=== PATIENT | female | born 1970 | race American Indian/Alaskan Native ===

== ENCOUNTER 2023-12-02 16:53 | Observation (INO) | payer OTHER, SELFPAY ==
[2023-12-02] VITALS (28 sets, daily range): BP systolic 84–140; BP diastolic 48–73; PULSE 102–140; RESP 18–32; TEMP 36.5–36.7; O2SAT 88–98; BMI 28.3; BMI 28.2
--- NOTE | 2023-12-02 17:05 | DI.RAD.S_ITS ---
PROCEDURE: XR CHEST 1V INDICATIONS: chest pain TECHNIQUE: One view of the chest was acquired. COMPARISON: None. FINDINGS: Surgical changes and devices: None. Lungs and pleura: Lungs are clear. No pleural effusions or pneumothorax. Mediastinum: Mediastinal contours appear normal. Heart size is normal. Bones and chest wall: No suspicious bony lesions. Overlying soft tissues appear unremarkable. IMPRESSION: No acute cardiopulmonary abnormality is seen. Dictated by: Madi Berman M.D. on 12/02/2023 at 17:26 Approved by: Madi Berman M.D. on 12/02/2023 at 17:26
[2023-12-02] MEDS: SODIUM CHLORIDE 0.9% 1,000 ML 1000 ML IV ×3 (17:14→22:22)
[2023-12-02 17:17] LABS: Add Manual Diff / Slide Review NO; Basophils Absolute Auto 0 /uL (0-100); Basophils Percent Auto 0.5 % (0-2); Eosinophils Absolute Auto 0 /uL (0-450); Eosinophils Percent Auto 0.1 % (2-4); Hematocrit 43.1 % (36-46); Lymphocytes Absolute Auto 1600 /uL (1100-4500); Lymphocytes Percent Auto 19.2 % (25-40); Mean Corpuscular HGB Conc 34.7 % (30-36); Mean Corpuscular Hemoglobin 32.7 PG (26-34); Mean Corpuscular Volume 94.3 fL (80-100); Monocytes Absolute Auto 300 /uL (0-900); Monocytes Percent Auto 3.6 % (3-14); Neutrophils Absolute Auto 6300 /uL (1500-7000); Neutrophils Percent Auto 76.6 % (50-75); Platelet Count 135 X10^3/uL (150-400); Red Blood Cell Count 4.57 X10^6/uL (4.0-5.2); Red Cell Distribution Width 13.9 % (11.6-14.8); White Blood Cell Count 8.2 X10^3/uL (4.5-11.0)
--- NOTE | 2023-12-02 17:20 | ED.ARRPALP ---
HPI - Arrhythmia/Palpitations <Norah Busby DO - Last Filed: 12/03/23 07:17> General Chief Complaint: Arrhythmia/Palpitations Stated Complaint: heart racing Time Seen by Provider: 12/02/23 17:05 Source: patient Mode of arrival: Ambulatory History of Present Illness HPI narrative: Patient 53-year-old healthy female presents today with heart palpitations. She reports that this morning she noticed she had some palpitations it really never slow down all day. She denies any chest pain or dizziness no shortness of breath no fever or chills. No abdominal pain no nausea or vomiting. She has never had this happen before. She has not traveled anywhere. She appears in sinus tachycardia. She is also developed a slight headache throughout the day no numbness tingling or weakness Related Data Home Medications Medication Instructions Recorded Confirmed No Known Home Medications 12/03/23 12/03/23 Allergies Allergy/AdvReac Type Severity Reaction Status Date / Time No Known Drug Allergies Allergy Verified 12/02/23 17:04 Review of Systems <Rosario Vásquez MD - Last Filed: 12/03/23 02:36> Review of Systems Narrative: see HPI Patient History <Norah Busby DO - Last Filed: 12/03/23 07:17> Social History household members: children lives independently: Yes Smoking Status: Never smoker alcohol intake: current Smoking Status: Never smoker alcohol intake frequency: 0-2 drinks per day Substance Use Type: does not use Exam <Norah Busby DO - Last Filed: 12/03/23 07:17> Initial Vital Signs Initial Vital Signs: Vital Signs Pulse Rate 138 H 12/02/23 17:01 Blood Pressure 140/69 12/02/23 17:01 Pulse Oximetry 94 12/02/23 17:01 GENERAL: Alert 53-year-old female no acute distress and in no acute distress. HEENT: Head atraumatic,EOMI, pupils reactive, face symmetric, moist mucous membranes CARDIOVASCULAR: Regular rate tachycardic no murmurs RESPIRATORY: Breath sounds equal bilaterally, no wheezes rales or rhonchi. ABDOMEN: Soft, nontender. Normoactive bowel sounds all 4 quadrants. No guarding or rebound. EXTREMITIES: Normal range of motion, no clubbing or edema. Neurovascularly intact NEUROLOGICAL: Alert and oriented x4.Normal gait and speech. SKIN: Warm, dry, no laceration, no petechiae, no rashes or lesions. <Rosario Vásquez MD - Last Filed: 12/03/23 02:36> Initial Vital Signs Initial Vital Signs: Vital Signs Pulse Rate 138 H 12/02/23 17:01 Blood Pressure 140/69 12/02/23 17:01 Pulse Oximetry 94 12/02/23 17:01 Course <Norah Busby DO - Last Filed: 12/03/23 07:17> Orders Ordered: ED Orders 12/02/23 23:40 Urine Drug Screen, Rapid Stat Acetaminophen (Acetaminophen 325 Mg Tablet) 650 mg PO Q6H PRN PRN Reason: Fever/Mild Pain (1-3) Chlordiazepoxide HCl (Chlordiazepoxide 25 Mg Capsule) 50 mg PO Q6HR [facility] Last Admin: 12/03/23 06:03 Dose: 50 mg Documented By: Admin: 12/02/23 23:45 Dose: 50 mg Documented By: MS Enoxaparin Sodium (Enoxaparin 40 Mg/0.4 Ml Syringe) 40 mg SUBCUT DAILY [facility] Folic Acid (Folic Acid 1 Mg Tablet) 1 mg PO DAILY [facility] Dextrose/Sodium Chloride (Dextrose 5%-0.45% Ns) 1,000 mls @ 100 mls/hr IV CONT [facility] Last Admin: 12/02/23 23:45 Dose: 100 mls/hr Documented By: MS Ceftriaxone Sodium 1,000 mg/ (Sodium Chloride) 100 mls @ 200 mls/hr IV Q24H [facility] Last Admin: 12/03/23 04:06 Dose: 200 mls/hr Documented By: MS Albumin Human (Albuminar) 50 gm in 200 mls @ 60 mls/hr IV NOW ONE Stop: 12/03/23 08:55 Last Admin: 12/03/23 06:54 Dose: 60 mls/hr Documented By: MS Lorazepam (Lorazepam 2 Mg/Ml Inj) 0 mg IV CIWAPRN PRN; Protocol PRN Reason: Alcohol Withdrawal Multivitamins (Multivitamin 1 Tablet) 1 tab PO DAILY [facility] Naloxone HCl (Naloxone 0.4 Mg/Ml Vial) 0.2 mg IV Q2MIN PRN PRN Reason: Opiate Reversal Ondansetron HCl (Ondansetron 4 Mg/2 Ml Inj) 4 mg IV Q6HR PRN PRN Reason: Nausea And Vomiting Potassium Chloride (Potassium Chloride 20 Meq Tab) 40 meq PO Q6H [facility] Stop: 12/03/23 09:46 Last Admin: 12/03/23 04:06 Dose: 40 meq Documented By: Thiamine HCl (Thiamine 100 Mg Tablet) 100 mg PO DAILY [facility] Stop: 12/06/23 09:01 Discontinued Medications Clonidine HCl (Clonidine 0.1 Mg Tablet) 0.2 mg PO NOW ONE Stop: 12/02/23 20:34 Last Admin: 12/02/23 20:39 Dose: 0.2 mg Documented By: ANABELA Folic Acid (Folic Acid 1 Mg Tablet) 1 mg PO NOW ONE Stop: 12/02/23 19:02 Last Admin: 12/02/23 19:19 Dose: 1 mg Documented By: GREGORY Sodium Chloride (Normal Saline 0.9%) 1,000 mls @ 1,000 mls/hr IV BOLUS ONE Stop: 12/02/23 18:04 Last Infusion: 12/02/23 18:24 Dose: Infused Documented By: Admin: 12/02/23 17:14 Dose: 1,000 mls/hr Documented By: SPF Sodium Chloride (Normal Saline 0.9%) 1,000 mls @ 1,000 mls/hr IV BOLUS ONE Stop: 12/02/23 19:17 Last Infusion: 12/02/23 19:20 Dose: Infused Documented By: Admin: 12/02/23 18:45 Dose: 1,000 mls/hr Documented By: SPF Thiamine HCl 200 mg/ Sodium (Chloride) 102 mls @ 408 mls/hr IV NOW ONE Stop: 12/02/23 19:02 Last Infusion: 12/02/23 19:45 Dose: Infused Documented By: Admin: 12/02/23 19:20 Dose: 408 mls/hr Documented By: SPF Magnesium Sulfate (Magnesium Sulfate) 2 gm in 50 mls @ 25 mls/hr IV NOW ONE Stop: 12/03/23 00:14 Last Admin: 12/02/23 23:45 Dose: 25 mls/hr Documented By: Co-signed By: JUAN Sodium Chloride (Normal Saline 0.9%) 1,000 mls @ 1,000 mls/hr IV BOLUS ONE Stop: 12/02/23 23:21 Last Admin: 12/02/23 22:22 Dose: 1,000 mls/hr Documented By: GREGORY Sodium Chloride (Normal Saline 0.9%) 1,000 mls @ 1,000 mls/hr IV BOLUS ONE Stop: 12/03/23 02:08 Last Admin: 12/03/23 01:28 Dose: 1,000 mls/hr Documented By: FAISAL Magnesium Sulfate (Magnesium Sulfate) 2 gm in 50 mls @ 25 mls/hr IV NOW ONE Stop: 12/03/23 04:44 Last Infusion: 12/03/23 03:45 Dose: 0 mls/hr Documented By: Co-signed By: SMS Admin: 12/03/23 03:11 Dose: 25 mls/hr Documented By: FAISAL Co-signed By: Lactated Ringer's (Lactated Ringers) 1,000 mls @ 1,000 mls/hr IV BOLUS ONE Stop: 12/03/23 03:44 Last Admin: 12/03/23 02:57 Dose: 1,000 mls/hr Documented By: FAISAL Ketorolac Tromethamine (Ketorolac 30 Mg/Ml Vial) 15 mg IV NOW ONE Stop: 12/02/23 17:33 Last Admin: 12/02/23 17:43 Dose: 15 mg Documented By: ANABELA Midodrine (Midodrine Hcl 5 Mg Tablet) 10 mg PO 0600,1200,1800 STA Stop: 12/03/23 05:42 Last Admin: 12/03/23 06:03 Dose: 10 mg Documented By: FAISAL Phenobarbital (Phenobarbital 65 Mg/Ml Vial) 260 mg IV NOW ONE Stop: 12/02/23 19:38 Last Admin: 12/02/23 19:47 Dose: 260 mg Documented By: VAN Potassium Chloride (Potassium Chloride 20 Meq Tab) 40 meq PO NOW ONE Stop: 12/02/23 22:41 Last Admin: 12/02/23 23:51 Dose: 40 meq Documented By: Vital Signs Vital signs: Vital Signs - 8 hr 12/02/23 18:35 12/02/23 19:00 12/02/23 19:00 Pulse Rate 129 H 126 H Respiratory Rate 25 H Blood Pressure 132/68 Pulse Oximetry 98 97 Oxygen Delivery Method Room Air 12/02/23 19:30 12/02/23 19:30 12/02/23 20:00 Pulse Rate 124 H Respiratory Rate 30 H Blood Pressure 113/67 140/70 Pulse Oximetry 95 Oxygen Delivery Method Room Air 12/02/23 20:00 12/02/23 20:30 12/02/23 20:30 Pulse Rate 120 H 120 H Respiratory Rate 26 H 30 H Blood Pressure 131/73 Pulse Oximetry 96 94 Oxygen Delivery Method 12/02/23 20:39 12/02/23 21:00 12/02/23 21:30 Pulse Rate 120 H 117 H 111 H Respiratory Rate 23 31 H Blood Pressure 131/73 Pulse Oximetry 95 92 Oxygen Delivery Method Room Air Room Air 12/02/23 21:30 12/02/23 21:40 12/02/23 21:41 Pulse Rate Respiratory Rate Blood Pressure 96/58 L Pulse Oximetry 88 L 95 Oxygen Delivery Method Room Air Room Air <Rosario Vásquez MD - Last Filed: 12/03/23 02:36> Orders Ordered: ED Orders 12/02/23 23:40 Urine Drug Screen, Rapid Stat Acetaminophen (Acetaminophen 325 Mg Tablet) 650 mg PO Q6H PRN PRN Reason: Fever/Mild Pain (1-3) Chlordiazepoxide HCl (Chlordiazepoxide 25 Mg Capsule) 50 mg PO Q6HR [facility] Last Admin: 12/03/23 06:03 Dose: 50 mg Documented By: Admin: 12/02/23 23:45 Dose: 50 mg Documented By: Enoxaparin Sodium (Enoxaparin 40 Mg/0.4 Ml Syringe) 40 mg SUBCUT DAILY [facility] Folic Acid (Folic Acid 1 Mg Tablet) 1 mg PO DAILY [facility] Dextrose/Sodium Chloride (Dextrose 5%-0.45% Ns) 1,000 mls @ 100 mls/hr IV CONT [facility] Last Admin: 12/02/23 23:45 Dose: 100 mls/hr Documented By: MS Ceftriaxone Sodium 1,000 mg/ (Sodium Chloride) 100 mls @ 200 mls/hr IV Q24H [facility] Last Admin: 12/03/23 04:06 Dose: 200 mls/hr Documented By: Albumin Human (Albuminar) 50 gm in 200 mls @ 60 mls/hr IV NOW ONE Stop: 12/03/23 08:55 Last Admin: 12/03/23 06:54 Dose: 60 mls/hr Documented By: Lorazepam (Lorazepam 2 Mg/Ml Inj) 0 mg IV CIWAPRN PRN; Protocol PRN Reason: Alcohol Withdrawal Multivitamins (Multivitamin 1 Tablet) 1 tab PO DAILY [facility] Naloxone HCl (Naloxone 0.4 Mg/Ml Vial) 0.2 mg IV Q2MIN PRN PRN Reason: Opiate Reversal Ondansetron HCl (Ondansetron 4 Mg/2 Ml Inj) 4 mg IV Q6HR PRN PRN Reason: Nausea And Vomiting Potassium Chloride (Potassium Chloride 20 Meq Tab) 40 meq PO Q6H SHAD Stop: 12/03/23 09:46 Last Admin: 12/03/23 04:06 Dose: 40 meq Documented By: Thiamine HCl (Thiamine 100 Mg Tablet) 100 mg PO DAILY [facility] Stop: 12/06/23 09:01 Discontinued Medications Clonidine HCl (Clonidine 0.1 Mg Tablet) 0.2 mg PO NOW ONE Stop: 12/02/23 20:34 Last Admin: 12/02/23 20:39 Dose: 0.2 mg Documented By: ANABELA Folic Acid (Folic Acid 1 Mg Tablet) 1 mg PO NOW ONE Stop: 12/02/23 19:02 Last Admin: 12/02/23 19:19 Dose: 1 mg Documented By: GREGORY Sodium Chloride (Normal Saline 0.9%) 1,000 mls @ 1,000 mls/hr IV BOLUS ONE Stop: 12/02/23 18:04 Last Infusion: 12/02/23 18:24 Dose: Infused Documented By: Admin: 12/02/23 17:14 Dose: 1,000 mls/hr Documented By: GREGORY Sodium Chloride (Normal Saline 0.9%) 1,000 mls @ 1,000 mls/hr IV BOLUS ONE Stop: 12/02/23 19:17 Last Infusion: 12/02/23 19:20 Dose: Infused Documented By: Admin: 12/02/23 18:45 Dose: 1,000 mls/hr Documented By: GREGORY Thiamine HCl 200 mg/ Sodium (Chloride) 102 mls @ 408 mls/hr IV NOW ONE Stop: 12/02/23 19:02 Last Infusion: 12/02/23 19:45 Dose: Infused Documented By: Admin: 12/02/23 19:20 Dose: 408 mls/hr Documented By: GREGORY Magnesium Sulfate (Magnesium Sulfate) 2 gm in 50 mls @ 25 mls/hr IV NOW ONE Stop: 12/03/23 00:14 Last Admin: 12/02/23 23:45 Dose: 25 mls/hr Documented By: Co-signed By: JUAN Sodium Chloride (Normal Saline 0.9%) 1,000 mls @ 1,000 mls/hr IV BOLUS ONE Stop: 12/02/23 23:21 Last Admin: 12/02/23 22:22 Dose: 1,000 mls/hr Documented By: GREGORY Sodium Chloride (Normal Saline 0.9%) 1,000 mls @ 1,000 mls/hr IV BOLUS ONE Stop: 12/03/23 02:08 Last Admin: 12/03/23 01:28 Dose: 1,000 mls/hr Documented By: FAISAL Magnesium Sulfate (Magnesium Sulfate) 2 gm in 50 mls @ 25 mls/hr IV NOW ONE Stop: 12/03/23 04:44 Last Infusion: 12/03/23 03:45 Dose: 0 mls/hr Documented By: Co-signed By: JUAN Admin: 12/03/23 03:11 Dose: 25 mls/hr Documented By: FAISAL Co-signed By: Lactated Ringer's (Lactated Ringers) 1,000 mls @ 1,000 mls/hr IV BOLUS ONE Stop: 12/03/23 03:44 Last Admin: 12/03/23 02:57 Dose: 1,000 mls/hr Documented By: FAISAL Ketorolac Tromethamine (Ketorolac 30 Mg/Ml Vial) 15 mg IV NOW ONE Stop: 12/02/23 17:33 Last Admin: 12/02/23 17:43 Dose: 15 mg Documented By: ANABELA Midodrine (Midodrine Hcl 5 Mg Tablet) 10 mg PO 0600,1200,1800 STA Stop: 12/03/23 05:42 Last Admin: 12/03/23 06:03 Dose: 10 mg Documented By: FAISAL Phenobarbital (Phenobarbital 65 Mg/Ml Vial) 260 mg IV NOW ONE Stop: 12/02/23 19:38 Last Admin: 12/02/23 19:47 Dose: 260 mg Documented By: VAN Potassium Chloride (Potassium Chloride 20 Meq Tab) 40 meq PO NOW ONE Stop: 12/02/23 22:41 Last Admin: 12/02/23 23:51 Dose: 40 meq Documented By: MS Vital Signs Vital signs: Vital Signs - 8 hr 12/02/23 18:35 12/02/23 19:00 12/02/23 19:00 Pulse Rate 129 H 126 H Respiratory Rate 25 H Blood Pressure 132/68 Pulse Oximetry 98 97 Oxygen Delivery Method Room Air 12/02/23 19:30 12/02/23 19:30 12/02/23 20:00 Pulse Rate 124 H Respiratory Rate 30 H Blood Pressure 113/67 140/70 Pulse Oximetry 95 Oxygen Delivery Method Room Air 12/02/23 20:00 12/02/23 20:30 12/02/23 20:30 Pulse Rate 120 H 120 H Respiratory Rate 26 H 30 H Blood Pressure 131/73 Pulse Oximetry 96 94 Oxygen Delivery Method 12/02/23 20:39 12/02/23 21:00 12/02/23 21:30 Pulse Rate 120 H 117 H 111 H Respiratory Rate 23 31 H Blood Pressure 131/73 Pulse Oximetry 95 92 Oxygen Delivery Method Room Air Room Air 12/02/23 21:30 12/02/23 21:40 12/02/23 21:41 Pulse Rate Respiratory Rate Blood Pressure 96/58 L Pulse Oximetry 88 L 95 Oxygen Delivery Method Room Air Room Air MDM - Arrhythmia/Palpitations <Norah Busby, DO - Last Filed: 12/03/23 07:17> Lab Data 12/03/23 03:01 12/03/23 03:01 Labs: Lab Results 12/02/23 12/02/23 12/02/23 Range/Units 17:05 19:05 19:55 WBC 8.2 (4.5-11.0) X10^3/uL RBC 4.57 (4.0-5.2) X10^6/uL Hgb 15.0 (12.0-16.0) g/dL Hct 43.1 (36-46) % MCV 94.3 (80-100) fL MCH 32.7 (26-34) PG MCHC 34.7 (30-36) % RDW 13.9 (11.6-14.8) % Plt Count 135 L (150-400) X10^3/uL Neut % (Auto) 76.6 H (50-75) % Lymph % (Auto) 19.2 L (25-40) % Patrick % (Auto) 3.6 (3-14) % Eos % (Auto) 0.1 L (2-4) % Baso % (Auto) 0.5 (0-2) % Neut # (Auto) 6300 (9847-5988) /uL Lymph # (Auto) 1600 (3127-7063) /uL Patrick # (Auto) 300 (0-900) /uL Eos # (Auto) 0 (0-450) /uL Baso # (Auto) 0 (0-100) /uL PT 13.0 H (9.4-12.5) SECONDS INR 1.1 (0.9-1.3) APTT 36 (25.1-36.5) SECONDS D-Dimer 460 (<500) ng/ml VBG pH 7.45 H (7.33-7.43) VBG pCO2 27.9 L (45-50) mmHg VBG pO2 64 H (35-45) mmHg VBG HCO3 19 L (24-28) mmol/L VBG Total CO2 20 L (24-29) mmol/L VBG O2 Saturation 93 H (70-75) % VBG Base Excess -5.0 L (0-4) mmol/L FiO2 21 Sodium 142 (137-145) mmol/L Potassium 3.2 L (3.4-5.1) mmol/L Chloride 105 (98-107) mmol/L Carbon Dioxide 11 L (22-32) mmol/L BUN 13 (7-17) mg/dL Creatinine 0.97 (0.52-1.04) mg/dL Estimated GFR > 60 (>60) mL/min BUN/Creatinine Ratio 13.4 (6-22) Glucose 103 H (70-100) mg/dL Lactate 10.9 H* 6.6 H* (0.7-2.1) mmol/L Calcium 9.3 (8.4-10.2) mg/dL Magnesium 1.8 (1.6-2.3) mg/dL Total Bilirubin 1.8 H (0.2-1.3) mg/dL AST 57 H (14-36) IU/L ALT 25 (<35) IU/L Alkaline Phosphatase 149 H (38-126) U/L Total Creatine Kinase 72 (30-135) U/L Troponin I 0.032 (0.01-0.034) ng/mL Total Protein 8.9 H (6.3-8.2) g/dL Albumin 4.3 (3.5-5.0) g/dL Globulin 4.6 H (1.7-4.1) g/dL Albumin/Globulin Ratio 0.9 L (1.0-2.8) Lipase 197 (23-300) U/L TSH 0.392 L (0.47-4.68) uIU/mL Ethyl Alcohol 17 H ( - 10) mg/dL 12/02/23 Range/Units 21:20 WBC (4.5-11.0) X10^3/uL RBC (4.0-5.2) X10^6/uL Hgb (12.0-16.0) g/dL Hct (36-46) % MCV (80-100) fL MCH (26-34) PG MCHC (30-36) % RDW (11.6-14.8) % Plt Count (150-400) X10^3/uL Neut % (Auto) (50-75) % Lymph % (Auto) (25-40) % Patrick % (Auto) (3-14) % Eos % (Auto) (2-4) % Baso % (Auto) (0-2) % Neut # (Auto) (2107-3282) /uL Lymph # (Auto) (0310-9770) /uL Patrick # (Auto) (0-900) /uL Eos # (Auto) (0-450) /uL Baso # (Auto) (0-100) /uL PT (9.4-12.5) SECONDS INR (0.9-1.3) APTT (25.1-36.5) SECONDS D-Dimer (<500) ng/ml VBG pH (7.33-7.43) VBG pCO2 (45-50) mmHg VBG pO2 (35-45) mmHg VBG HCO3 (24-28) mmol/L VBG Total CO2 (24-29) mmol/L VBG O2 Saturation (70-75) % VBG Base Excess (0-4) mmol/L FiO2 Sodium (137-145) mmol/L Potassium (3.4-5.1) mmol/L Chloride (98-107) mmol/L Carbon Dioxide (22-32) mmol/L BUN (7-17) mg/dL Creatinine (0.52-1.04) mg/dL Estimated GFR (>60) mL/min BUN/Creatinine Ratio (6-22) Glucose (70-100) mg/dL Lactate 2.8 H (0.7-2.1) mmol/L Calcium (8.4-10.2) mg/dL Magnesium (1.6-2.3) mg/dL Total Bilirubin (0.2-1.3) mg/dL AST (14-36) IU/L ALT (<35) IU/L Alkaline Phosphatase (38-126) U/L Total Creatine Kinase (30-135) U/L Troponin I (0.01-0.034) ng/mL Total Protein (6.3-8.2) g/dL Albumin (3.5-5.0) g/dL Globulin (1.7-4.1) g/dL Albumin/Globulin Ratio (1.0-2.8) Lipase (23-300) U/L TSH (0.47-4.68) uIU/mL Ethyl Alcohol ( - 10) mg/dL Imaging Data Chest x-ray: Radiologist's Impresson: PROCEDURE: XR CHEST 1V INDICATIONS: chest pain TECHNIQUE: One view of the chest was acquired. COMPARISON: None. FINDINGS: Surgical changes and devices: None. Lungs and pleura: Lungs are clear. No pleural effusions or pneumothorax. Mediastinum: Mediastinal contours appear normal. Heart size is normal. Bones and chest wall: No suspicious bony lesions. Overlying soft tissues appear unremarkable. IMPRESSION: No acute cardiopulmonary abnormality is seen. Dictated by: Madi Berman M.D. on 12/02/2023 at 17:26 ECG Data Interpretation: Sinus tachycardia rate 130 AK interval 166 QRS [address] changes or T-wave inversions MDM Narrative Medical decision making narrative: Patient healthy 53-year-old female presents today with heart palpitations. She is noted to be tachycardic here in the ED appears sinus rhythm heart rate initially in the 140s but decreased in the 120s. She also is having mild headache Blood work reviewed: WBC 8.2, he hemoglobin 15.0, hematocrit 43.1, platelets 135, sodium 142, potassium 3.2, chloride 105, carbon dioxide 11, BUN 13, creatinine 0.9, glucose 103, bilirubin 1.8 AST 57 ALT 25 alk-phos 149 Imaging pending Signed out to Dr. Fahad Vásquez -assumed care of patient at 6:00 p.m.. Patient reassessed, she was resting comfortably in bed, still tachycardic at a rate of 120 beats per minute. Laboratory work is reviewed, laboratory work called with lactic acid results. Patient's lactic acid is 10 and her bicarb is 11. Patient's physical presentation is incongruent with her laboratory results. She states she still feels occasionally short of breath but does feel like her heart rate has i mproved. CTA ordered due to patient's persistant tachycardia, borderline troponin, and lab abnormalities Alcohol level is elevated despite patient's stating that her last drink was yesterday and she only drinks ?1? per day. In addition liver enzymes are elevated and on CT angio of the chest the liver was visualized and has nodular contour consistent with hepatic cirrhosis. I suspect that patient has been untruthful about her alcohol intake and her symptoms may in fact be related to alcohol withdrawal. Thiamine and folic acid added, phenobarbital ordered. Heart rate has decreased, patient states that she would like to pursue stopping alcohol. We will admit patient for further treatment of her condition. <Rosario Vásquez MD - Last Filed: 12/03/23 02:36> Lab Data Labs: Lab Results 12/02/23 12/02/23 12/02/23 Range/Units 17:05 19:05 19:55 WBC 8.2 (4.5-11.0) X10^3/uL RBC 4.57 (4.0-5.2) X10^6/uL Hgb 15.0 (12.0-16.0) g/dL Hct 43.1 (36-46) % MCV 94.3 (80-100) fL MCH 32.7 (26-34) PG MCHC 34.7 (30-36) % RDW 13.9 (11.6-14.8) % Plt Count 135 L (150-400) X10^3/uL Neut % (Auto) 76.6 H (50-75) % Lymph % (Auto) 19.2 L (25-40) % Patrick % (Auto) 3.6 (3-14) % Eos % (Auto) 0.1 L (2-4) % Baso % (Auto) 0.5 (0-2) % Neut # (Auto) 6300 (2207-2820) /uL Lymph # (Auto) 1600 (7836-8449) /uL Patrick # (Auto) 300 (0-900) /uL Eos # (Auto) 0 (0-450) /uL Baso # (Auto) 0 (0-100) /uL PT 13.0 H (9.4-12.5) SECONDS INR 1.1 (0.9-1.3) APTT 36 (25.1-36.5) SECONDS D-Dimer 460 (<500) ng/ml VBG pH 7.45 H (7.33-7.43) VBG pCO2 27.9 L (45-50) mmHg VBG pO2 64 H (35-45) mmHg VBG HCO3 19 L (24-28) mmol/L VBG Total CO2 20 L (24-29) mmol/L VBG O2 Saturation 93 H (70-75) % VBG Base Excess -5.0 L (0-4) mmol/L FiO2 21 Sodium 142 (137-145) mmol/L Potassium 3.2 L (3.4-5.1) mmol/L Chloride 105 (98-107) mmol/L Carbon Dioxide 11 L (22-32) mmol/L BUN 13 (7-17) mg/dL Creatinine 0.97 (0.52-1.04) mg/dL Estimated GFR > 60 (>60) mL/min BUN/Creatinine Ratio 13.4 (6-22) Glucose 103 H (70-100) mg/dL Lactate 10.9 H* 6.6 H* (0.7-2.1) mmol/L Calcium 9.3 (8.4-10.2) mg/dL Magnesium 1.8 (1.6-2.3) mg/dL Total Bilirubin 1.8 H (0.2-1.3) mg/dL AST 57 H (14-36) IU/L ALT 25 (<35) IU/L Alkaline Phosphatase 149 H (38-126) U/L Total Creatine Kinase 72 (30-135) U/L Troponin I 0.032 (0.01-0.034) ng/mL Total Protein 8.9 H (6.3-8.2) g/dL Albumin 4.3 (3.5-5.0) g/dL Globulin 4.6 H (1.7-4.1) g/dL Albumin/Globulin Ratio 0.9 L (1.0-2.8) Lipase 197 (23-300) U/L TSH 0.392 L (0.47-4.68) uIU/mL Ethyl Alcohol 17 H ( - 10) mg/dL 12/02/23 Range/Units 21:20 WBC (4.5-11.0) X10^3/uL RBC (4.0-5.2) X10^6/uL Hgb (12.0-16.0) g/dL Hct (36-46) % MCV (80-100) fL MCH (26-34) PG MCHC (30-36) % RDW (11.6-14.8) % Plt Count (150-400) X10^3/uL Neut % (Auto) (50-75) % Lymph % (Auto) (25-40) % Patrick % (Auto) (3-14) % Eos % (Auto) (2-4) % Baso % (Auto) (0-2) % Neut # (Auto) (4003-7985) /uL Lymph # (Auto) (9740-3672) /uL Patrick # (Auto) (0-900) /uL Eos # (Auto) (0-450) /uL Baso # (Auto) (0-100) /uL PT (9.4-12.5) SECONDS INR (0.9-1.3) APTT (25.1-36.5) SECONDS D-Dimer (<500) ng/ml VBG pH (7.33-7.43) VBG pCO2 (45-50) mmHg VBG pO2 (35-45) mmHg VBG HCO3 (24-28) mmol/L VBG Total CO2 (24-29) mmol/L VBG O2 Saturation (70-75) % VBG Base Excess (0-4) mmol/L FiO2 Sodium (137-145) mmol/L Potassium (3.4-5.1) mmol/L Chloride (98-107) mmol/L Carbon Dioxide (22-32) mmol/L BUN (7-17) mg/dL Creatinine (0.52-1.04) mg/dL Estimated GFR (>60) mL/min BUN/Creatinine Ratio (6-22) Glucose (70-100) mg/dL Lactate 2.8 H (0.7-2.1) mmol/L Calcium (8.4-10.2) mg/dL Magnesium (1.6-2.3) mg/dL Total Bilirubin (0.2-1.3) mg/dL AST (14-36) IU/L ALT (<35) IU/L Alkaline Phosphatase (38-126) U/L Total Creatine Kinase (30-135) U/L Troponin I (0.01-0.034) ng/mL Total Protein (6.3-8.2) g/dL Albumin (3.5-5.0) g/dL Globulin (1.7-4.1) g/dL Albumin/Globulin Ratio (1.0-2.8) Lipase (23-300) U/L TSH (0.47-4.68) uIU/mL Ethyl Alcohol ( - 10) mg/dL MDM Narrative Medical decision making narrative: Patient healthy 53-year-old female presents today with heart palpitations. She is noted to be tachycardic here in the ED appears sinus rhythm heart rate initially in the 140s but decreased in the 120s. She also is having mild headache Blood work reviewed: WBC 8.2, he hemoglobin 15.0, hematocrit 43.1, platelets 135, sodium 142, potassium 3.2, chloride 105, carbon dioxide 11, BUN 13, creatinine 0.9, glucose 103, bilirubin 1.8 AST 57 ALT 25 alk-phos 149 Dr. Vásquez -assumed care of patient at 6:00 p.m.. Patient reassessed, she was resting comfortably in bed, still tachycardic at a rate of 120 beats per minute. Laboratory work is reviewed, laboratory work called with lactic acid results. Patient's lactic acid is 10 and her bicarb is 11. Patient's physical presentation is incongruent with her laboratory results. She states she still feels occasionally short of breath but does feel like her heart rate has i mproved. CTA ordered due to patient's persistant tachycardia, borderline troponin, and lab abnormalities Alcohol level is elevated despite patient's stating that her last drink was yesterday and she only drinks ?1? per day. In addition liver enzymes are elevated and on CT angio of the chest the liver was visualized and has nodular contour consistent with hepatic cirrhosis. I suspect that patient has been untruthful about her alcohol intake and her symptoms may in fact be related to alcohol withdrawal. Thiamine and folic acid added, phenobarbital ordered. Heart rate has decreased, patient states that she would like to pursue stopping alcohol. We will admit patient for further treatment of her condition. Discharge Plan Departure Patient Disposition: Admitted as Observation Clinical Impression: Sinus tachycardia Hepatic cirrhosis Qualifiers: Hepatic cirrhosis type: alcoholic cirrhosis Ascites presence: without ascites Qualified Code(s): K70.30 - Alcoholic cirrhosis of liver without ascites Admit Date/Time: 12/02/23 21:46 Admit Provider: Fernanda Walker
--- NOTE | 2023-12-02 17:29 | PC.NURSE ---
Pt reports feeling heart palpitations at rest starting this morning, with some SOB. Pt stayed at home and has not felt better. On the drive here developed headache. She denies history of similar, denies headache, N/V, cough, fevers.
[2023-12-02 17:33] LABS: Alanine Aminotransferase 25 IU/L (<35); Albumin 4.3 g/dL (3.5-5.0); Albumin Globulin Ratio 0.9 (1.0-2.8); Alkaline Phosphatase 149 U/L (38-126); Aspartate Aminotransferase 57 IU/L (14-36); BUN Creatinine Ratio 13.4 (6-22); Bilirubin Total 1.8 mg/dL (0.2-1.3); Blood Urea Nitrogen 13 mg/dL (7-17); Calcium 9.3 mg/dL (8.4-10.2); Carbon Dioxide 11 mmol/L (22-32); Chloride 105 mmol/L (98-107); Creatine Kinase 72 U/L (30-135); Estimated Glomerular Filt Rate > 60 mL/min (>60); Globulin 4.6 g/dL (1.7-4.1); Glucose 103 mg/dL (70-100); HEMOLYSIS < 15 (0-50); Lipase 197 U/L (23-300); Potassium 3.2 mmol/L (3.4-5.1); Sodium 142 mmol/L (137-145); Total Protein 8.9 g/dL (6.3-8.2)
[2023-12-02 17:34] LABS: INR 1.1 (0.9-1.3)
[2023-12-02 17:35] LABS: D Dimer 460 ng/ml (<500)
[2023-12-02 17:36] LABS: PTT Partial Thromboplastin Tim 36 SECONDS (25.1-36.5)
[2023-12-02 17:43] LABS: Troponin I 0.032 ng/mL (0.01-0.034)
[2023-12-02] MEDS: KETOROLAC 30 MG/ML VIAL 15 MG IV (17:43)
[2023-12-02 17:58] LABS: Magnesium 1.8 mg/dL (1.6-2.3)
[2023-12-02 18:13] LABS: Lactate (Lactic Acid) 10.9 mmol/L (0.7-2.1)
--- NOTE | 2023-12-02 18:18 | DI.CT.S_ITS ---
PROCEDURE: CT ANGIO CHEST PE PROTOCOL INDICATIONS: dyspnea, tachycardia, lactic acidosis TECHNIQUE: After the administration of intravenous contrast, 2 mm thick sections acquired from the pulmonary apices to the posterior costophrenic angles. 3-dimensional maximum intensity projection (MIP) coronal and sagittal reformats were then acquired through the thorax. For radiation dose reduction, the following was used: automated exposure control, adjustment of mA and/or kV according to patient size. COMPARISON: None. FINDINGS: Image quality: Diagnostic. Pulmonary arteries: Main pulmonary artery is dilated measuring 3.5 cm. No intraluminal filling defects to suggest central pulmonary embolism. Lower Neck: No enlarged lymph nodes. Thyroid: No thyroid nodules which require sonographic follow up, per consensus guidelines. Axillae: No enlarged lymph nodes. Chest Wall: Unremarkable. Bones: Unremarkable. Lungs and Pleura: No pneumothorax or pleural effusions. No consolidation or suspicious nodules. Heart: Heart size is normal. No pericardial effusion. Thoracic Vessels: No aortic aneurysm. Mediastinum and Prema: No enlarged lymph nodes. Esophagus: No wall thickening. No hiatal hernia. Upper Abdomen: Nodular contour to the liver, consistent with cirrhosis. IMPRESSION: No pulmonary embolus. No acute cardiopulmonary process. Dilated main pulmonary artery, suggestive of pulmonary hypertension. Hepatic cirrhosis. Dictated by: Madi Berman M.D. on 12/02/2023 at 19:11 Approved by: Madi Berman M.D. on 12/02/2023 at 19:18
[2023-12-02 18:25] LABS: Ethanol (ETOH) 17 mg/dL
[2023-12-02 18:28] LABS: Thyroid Stimulating Hormone 0.392 uIU/mL (0.47-4.68)
[2023-12-02 19:16] LABS: Reflexed Lactate in 2 Hours Y
[2023-12-02] MEDS: FOLIC ACID 1 MG TABLET PO (19:19)
[2023-12-02] MEDS: THIAMINE 200 MG in SODIUM CHLORIDE 0.9% 100 ML 408 MG IV (19:20)
[2023-12-02 19:35] LABS: Lactate 2HR (Lactic Acid Rflx) 6.6 mmol/L (0.7-2.1)
[2023-12-02] MEDS: PHENobarbital 65 MG/ML VIAL 260 MG IV (19:47)
[2023-12-02 20:22] LABS: HCO3 VBG 19 mmol/L (24-28); PCO2 VBG 27.9 mmHg (45-50); PO2 VBG 64 mmHg (35-45); Total CO2 VBG 20 mmol/L (24-29); pH VBG 7.45 (7.33-7.43)
[2023-12-02 20:23] LABS: Fractionated Inspired Oxygen 21; Oxygen Saturation VBG 93 % (70-75)
[2023-12-02] MEDS: cloNIDine 0.1 MG TABLET 0.2 MG PO (20:39)
--- NOTE | 2023-12-02 22:20 | PC.NURSE ---
Dr. Vásquez notified of pt's hypotension. New verbal orders for fluid bolus, see MAR.
[2023-12-02 22:32] LABS: Lactate (Lactic Acid) 2.8 mmol/L (0.7-2.1)
[2023-12-02] MEDS: chlordiazePOXIDE 25 MG CAPSULE 50 MG PO (23:45)
[2023-12-02] MEDS: MAGNESIUM SULFATE 2 GM/50 ML PIGGYBACK IV (23:45)
[2023-12-02] MEDS: DEXTROSE 5%-0.45% NS 1,000 ML 100 ML IV (23:45)
--- NOTE | 2023-12-02 23:47 | PM.HP.1 ---
History of Present Illness History of Present Illness Date Patient Seen: 12/02/23 Time Patient Seen: 23:47 Date of Onset of Symptoms: 12/02/23 Chief complaint: heart racing Narrative: States she was at her baseline health this morning when she felt like her heart was racing. This persisted and was not like any other times is has felt fast with red bull which she has daily in the morning and thus she presented to ED for evaluation. Denies chest pain, endorses a little SOB like she was winded. Denies GI or symptoms. Typically drinks 8 oz of alcohol a day, last drink 4/3 in the evening. Has stopped drinking EtOH previously without withdrawal symptoms or seizure, longest duration about 6 months. Feels that she tries but does not stay as well hydrated as she would like at home, drinks about 3 cups a water a day while at work. Tries to eat a diet balanced with proteins. Denies fevers, chills, night sweats. No sick contacts. No recent virus. Reports a pneumonia around 07/2023, was able to manage at home. States she does not take any medications, does not have any medical conditions, is not aware of any medical records on file for her at other facilities. ED evaluated, CTA negative for PE or acute process. Found the patient to have sinus tachycardia in acute alcohol withdrawal. Given severity in ED, bolus phenobarbital 260mg then Clonidine 0.2mg administered. BP trended down after Clonidine and 1 L NS from 140/69 to 96/50. HR on presentation 150's, improved to 120 with fluids, phenobarbital, down to 110 after Clonidine. Plan for admission to ICU. Administered in ED Folic Acid (Folic Acid 1 Mg Tablet) 1 mg PO NOW ONE Stop: 12/02/23 19:02 Last Admin: 12/02/23 19:19 Dose: 1 mg Documented By: SPF Sodium Chloride (Normal Saline 0.9%) 1,000 mls @ 1,000 mls/hr IV BOLUS ONE Stop: 12/02/23 18:04 Last Infusion: 12/02/23 18:24 Dose: Infused Documented By: Admin: 12/02/23 17:14 Dose: 1,000 mls/hr Documented By: SPF Sodium Chloride (Normal Saline 0.9%) 1,000 mls @ 1,000 mls/hr IV BOLUS ONE Stop: 12/02/23 19:17 Last Infusion: 12/02/23 19:20 Dose: Infused Documented By: Admin: 12/02/23 18:45 Dose: 1,000 mls/hr Documented By: GREGORY Thiamine HCl 200 mg/ Sodium (Chloride) 102 mls @ 408 mls/hr IV NOW ONE Stop: 12/02/23 19:02 Last Infusion: 12/02/23 19:45 Dose: Infused Documented By: Admin: 12/02/23 19:20 Dose: 408 mls/hr Documented By: GREGORY Ketorolac Tromethamine (Ketorolac 30 Mg/Ml Vial) 15 mg IV NOW ONE Stop: 12/02/23 17:33 Last Admin: 12/02/23 17:43 Dose: 15 mg Documented By: ANABELA Phenobarbital (Phenobarbital 65 Mg/Ml Vial) 260 mg IV NOW ONE Stop: 12/02/23 19:38 Last Admin: 12/02/23 19:47 Dose: 260 mg Documented By: [facility] Social History household members: children lives independently: Yes Smoking Status: Never smoker alcohol intake: current Meds Home Medications and Allergies Allergies Allergy/AdvReac Type Severity Reaction Status Date / Time No Known Drug Allergies Allergy Verified 12/02/23 17:04 Review of Systems Review of Systems ROS: Yes All systems reviewed with the patient and are negative except as otherwise documented Exam Vital Signs (past 8 hours): - 12/02/23 17:01 12/02/23 17:01 12/02/23 17:04 Temperature 98.0 F Pulse Rate 138 H 140 H Respiratory Rate 18 Blood Pressure 140/69 140/69 Pulse Oximetry 94 95 Oxygen Delivery Method Room Air Oxygen Flow Rate 12/02/23 17:30 12/02/23 17:30 12/02/23 18:00 Temperature Pulse Rate 128 H 122 H Respiratory Rate 32 H 30 H Blood Pressure 135/60 Pulse Oximetry 97 96 Oxygen Delivery Method Room Air Oxygen Flow Rate 12/02/23 18:00 12/02/23 18:35 12/02/23 19:00 Temperature Pulse Rate 129 H Respiratory Rate Blood Pressure 130/58 L 132/68 Pulse Oximetry 98 Oxygen Delivery Method Oxygen Flow Rate 12/02/23 19:00 12/02/23 19:30 12/02/23 19:30 Temperature Pulse Rate 126 H 124 H Respiratory Rate 25 H 30 H Blood Pressure 113/67 Pulse Oximetry 97 95 Oxygen Delivery Method Room Air Room Air Oxygen Flow Rate 12/02/23 20:00 12/02/23 20:00 12/02/23 20:30 Temperature Pulse Rate 120 H Respiratory Rate 26 H Blood Pressure 140/70 131/73 Pulse Oximetry 96 Oxygen Delivery Method Oxygen Flow Rate 12/02/23 20:30 12/02/23 20:39 12/02/23 21:00 Temperature Pulse Rate 120 H 120 H 117 H Respiratory Rate 30 H 23 Blood Pressure 131/73 Pulse Oximetry 94 95 Oxygen Delivery Method Room Air Oxygen Flow Rate 12/02/23 21:30 12/02/23 21:30 12/02/23 21:40 Temperature Pulse Rate 111 H Respiratory Rate 31 H Blood Pressure 96/58 L Pulse Oximetry 92 88 L Oxygen Delivery Method Room Air Room Air Oxygen Flow Rate 12/02/23 21:41 12/02/23 21:51 12/02/23 21:51 Temperature Pulse Rate Respiratory Rate Blood Pressure Pulse Oximetry 95 88 L 93 Oxygen Delivery Method Room Air Room Air Nasal Cannula Oxygen Flow Rate 1 12/02/23 22:00 12/02/23 22:05 12/02/23 22:05 Temperature Pulse Rate 102 H 104 H Respiratory Rate 30 H 27 H Blood Pressure 91/55 L Pulse Oximetry 94 Oxygen Delivery Method Nasal Cannula Oxygen Flow Rate 1 12/02/23 22:11 12/02/23 22:11 12/02/23 22:23 Temperature Pulse Rate 102 H Respiratory Rate 27 H Blood Pressure 91/55 L 86/54 L Pulse Oximetry 95 Oxygen Delivery Method Oxygen Flow Rate 12/02/23 22:23 12/02/23 22:29 12/02/23 22:29 Temperature Pulse Rate 104 H 105 H Respiratory Rate 25 H 27 H Blood Pressure 99/50 L Pulse Oximetry 95 96 Oxygen Delivery Method Nasal Cannula Oxygen Flow Rate 1 12/02/23 22:30 12/02/23 22:30 12/02/23 22:35 Temperature Pulse Rate 105 H Respiratory Rate 27 H Blood Pressure 97/52 L 88/52 L Pulse Oximetry 96 Oxygen Delivery Method Oxygen Flow Rate 12/02/23 22:35 12/02/23 22:40 12/02/23 22:40 Temperature Pulse Rate 104 H 104 H Respiratory Rate 26 H 27 H Blood Pressure 91/52 L Pulse Oximetry 96 96 Oxygen Delivery Method Nasal Cannula Oxygen Flow Rate 1 12/02/23 22:45 12/02/23 22:45 12/02/23 22:50 Temperature Pulse Rate 106 H Respiratory Rate 22 Blood Pressure 84/48 L 93/52 L Pulse Oximetry 96 Oxygen Delivery Method Oxygen Flow Rate 12/02/23 22:50 12/02/23 23:15 12/02/23 23:16 Temperature Pulse Rate 108 H 106 H Respiratory Rate 30 H 20 Blood Pressure 112/56 L Pulse Oximetry 96 Oxygen Delivery Method Nasal Cannula Oxygen Flow Rate 1 12/02/23 23:16 Temperature 97.7 F Pulse Rate 105 H Respiratory Rate 26 H Blood Pressure Pulse Oximetry 97 Oxygen Delivery Method Oxygen Flow Rate 2 Oxygen Delivery Method Nasal Cannula Oxygen Flow Rate 2 Narrative Exam Narrative: Exam using audio visual with stethoscope. Const General: cooperative and comfortable Eyes General: appearance normal, both eyes and all related structures Resp Effort & Inspection: normal respiratory effort and able to speak in complete sentences Auscultation: clear to auscultation bilaterally Cardio Rate: tachycardic Rhythm: regular rhythm Heart Sounds: no murmurs GI Palpation: soft and No tender Auscultation: normal bowel sounds Skin General: no rashes or lesions noted Neuro General: patient alert and patient oriented x3 Extrem General: normal to inspection Psych Appearance: grossly normal Mental Status: mental status grossly normal Objective ECG Impression: Unable to view images, per documentation ECG Data Interpretation: Sinus tachycardia rate 130 SC interval 166 QRS [address] changes or T-wave inversions Imaging CT scan - chest: My impression: NAP Radiologist's impression: CTA chest COMPARISON: None. FINDINGS: Image quality: Diagnostic. Pulmonary arteries: Main pulmonary artery is dilated measuring 3.5 cm. No intraluminal filling defects to suggest central pulmonary embolism. Lower Neck: No enlarged lymph nodes. Thyroid: No thyroid nodules which require sonographic follow up, per consensus guidelines. Axillae: No enlarged lymph nodes. Chest Wall: Unremarkable. Bones: Unremarkable. Lungs and Pleura: No pneumothorax or pleural effusions. No consolidation or suspicious nodules. Heart: Heart size is normal. No pericardial effusion. Thoracic Vessels: No aortic aneurysm. Mediastinum and Prema: No enlarged lymph nodes. Esophagus: No wall thickening. No hiatal hernia. Upper Abdomen: Nodular contour to the liver, consistent with cirrhosis. IMPRESSION: No pulmonary embolus. No acute cardiopulmonary process. Dilated main pulmonary artery, suggestive of pulmonary hypertension. Hepatic cirrhosis. Dictated by: Madi Berman M.D. on 12/02/2023 at 19:11 Approved by: Madi Berman M.D. on 12/02/2023 at 19:18 Labs 12/02/23 17:05 12/02/23 17:05 Labs: Laboratory Results - last 24 hr 12/02/23 12/02/23 12/02/23 09:20 17:05 19:05 WBC 8.2 RBC 4.57 Hgb 15.0 Hct 43.1 MCV 94.3 MCH 32.7 MCHC 34.7 RDW 13.9 Plt Count 135 L Neut % (Auto) 76.6 H Lymph % (Auto) 19.2 L [place] % (Auto) 3.6 Eos % (Auto) 0.1 L Baso % (Auto) 0.5 Neut # (Auto) 6300 Lymph # (Auto) 1600 [place] # (Auto) 300 Eos # (Auto) 0 Baso # (Auto) 0 PT 13.0 H INR 1.1 APTT 36 D-Dimer 460 VBG pH VBG pCO2 VBG pO2 VBG HCO3 VBG Total CO2 VBG O2 Saturation VBG Base Excess FiO2 Sodium 142 Potassium 3.2 L Chloride 105 Carbon Dioxide 11 L BUN 13 Creatinine 0.97 Estimated GFR > 60 BUN/Creatinine Ratio 13.4 Glucose 103 H Lactate 2.8 H 10.9 H* 6.6 H* Calcium 9.3 Magnesium 1.8 Total Bilirubin 1.8 H AST 57 H ALT 25 Alkaline Phosphatase 149 H Total Creatine Kinase 72 Troponin I 0.032 Total Protein 8.9 H Albumin 4.3 Globulin 4.6 H Albumin/Globulin Ratio 0.9 L Lipase 197 TSH 0.392 L Ethyl Alcohol 17 H 12/02/23 19:55 WBC RBC Hgb Hct MCV MCH MCHC RDW Plt Count Neut % (Auto) Lymph % (Auto) [place] % (Auto) Eos % (Auto) Baso % (Auto) Neut # (Auto) Lymph # (Auto) [place] # (Auto) Eos # (Auto) Baso # (Auto) PT INR APTT D-Dimer VBG pH 7.45 H VBG pCO2 27.9 L VBG pO2 64 H VBG HCO3 19 L VBG Total CO2 20 L VBG O2 Saturation 93 H VBG Base Excess -5.0 L FiO2 21 Sodium Potassium Chloride Carbon Dioxide BUN Creatinine Estimated GFR BUN/Creatinine Ratio Glucose Lactate Calcium Magnesium Total Bilirubin AST ALT Alkaline Phosphatase Total Creatine Kinase Troponin I Total Protein Albumin Globulin Albumin/Globulin Ratio Lipase TSH Ethyl Alcohol Assessment & Plan Assessment and plan (1) Alcohol withdrawal syndrome: Qualifiers: Complication of substance-induced condition: uncomplicated Qualified Code(s): F10.930 - Alcohol use, unspecified with withdrawal, uncomplicated Status: Acute Plan: Admit to ICU Sinus tachycardia, tachypnea - d-dimer negative, CTA without PE or acute process, no ACS, VBG 7.45 wth O2 64 on RA in the setting of type B lactic acidosis Desire treatment for alcohol withdrawal, SW consulted Upon evaluation BP 112/56, HR 106 - improved and BP trending up after Clonidine in ED, will hold further CIWA with Ativan prn, scheduled Librium (2) Sinus tachycardia: Status: Acute Plan: 2/2 above, improving, continue treatment as above Troponin negative 0.32, CK 72, EKG sinus tachycardia without chest pain; no ACS TSH 0.392 FT4 pending, no evidence of thyroid etiology (3) Hepatic cirrhosis: Problem details: Alcoholic cirrhosis Chronic Alcohol abuse Qualifiers: Ascites presence: without ascites Hepatic cirrhosis type: alcoholic cirrhosis Qualified Code(s): K70.30 - Alcoholic cirrhosis of liver without ascites Status: Acute Plan: CT with changes consistent with cirrhosis in the setting of chronic alcohol use consistent thrombocytopenia [id number], Bili 1.8 with benign abdominal exam no GI symptoms, INR 1.1, Alk phos 149, AST 57 (4) Lactic acidosis: Status: Acute Plan: Type B lactic acidosis 2/2 alcohol use LA 10.9, 6.6, repeat pending, continue IV fluids EtOH level 17 upon initial evaluation (5) Hypokalemia: Status: Acute Plan: Potassium replacement, check magnesium level, monitor and replace prn Plan Hyperglycemia, suspect reactive 2/2 above, monitor Time Spent With Patient Time with patient: 70 minutes or more, with 50% spent counseling/coordinating
[2023-12-02] MEDS: POTASSIUM CHLORIDE 20 MEQ TAB 40 MEQ PO (23:51)
[2023-12-03] VITALS (72 sets, daily range): BP systolic 75–113; BP diastolic 43–63; PULSE 66–100; RESP 7–39; TEMP 35.9–36.9; O2SAT 86–100
[2023-12-03 00:59] LABS: UR Morphine/Opiate cutoff 300 Negative (Negative); Urine Amphetamines Negative (Negative); Urine Barbiturates Negative (Negative); Urine Benzodiazepines Negative (Negative); Urine Cocaine Negative (Negative); Urine MDMA Negative (Negative); Urine Methadone Negative (Negative); Urine Methamphetamines Negative (Negative); Urine Oxycodone Negative (Negative); Urine Phencyclidine Negative (Negative); Urine Tetrahydrocannabinol Negative (Negative); Urine Tricyclic Antidepressant Negative (Negative)
[2023-12-03 01:16] LABS: MRSA (Nasal) PCR Not Detected (Not Detect)
[2023-12-03] MEDS: SODIUM CHLORIDE 0.9% 1,000 ML 1000 ML IV (01:28)
[2023-12-03] MEDS: LACTATED RINGERS 1,000 ML 1000 ML IV (02:57)
[2023-12-03] MEDS: MAGNESIUM SULFATE 2 GM/50 ML PIGGYBACK IV (03:11)
[2023-12-03 03:22] LABS: Add Manual Diff / Slide Review NO; Basophils Absolute Auto 100 /uL (0-100); Basophils Percent Auto 1.2 % (0-2); Eosinophils Absolute Auto 0 /uL (0-450); Eosinophils Percent Auto 0.9 % (2-4); Hemoglobin 10.9 g/dL (12.0-16.0); Lymphocytes Absolute Auto 2000 /uL (1100-4500); Mean Corpuscular HGB Conc 35.1 % (30-36); Mean Corpuscular Hemoglobin 32.9 PG (26-34); Mean Corpuscular Volume 93.8 fL (80-100); Monocytes Absolute Auto 300 /uL (0-900); Monocytes Percent Auto 5.7 % (3-14); Neutrophils Absolute Auto 2900 /uL (1500-7000); Neutrophils Percent Auto 54.2 % (50-75); Platelet Count 74 X10^3/uL (150-400); Red Cell Distribution Width 14.1 % (11.6-14.8); White Blood Cell Count 5.3 X10^3/uL (4.5-11.0)
[2023-12-03 03:25] LABS: Alanine Aminotransferase 16 IU/L (<35); Albumin 2.3 g/dL (3.5-5.0); Albumin Globulin Ratio 0.7 (1.0-2.8); Alkaline Phosphatase 89 U/L (38-126); Aspartate Aminotransferase 42 IU/L (14-36); BUN Creatinine Ratio 16.7 (6-22); Bilirubin Total 1.8 mg/dL (0.2-1.3); Blood Urea Nitrogen 13 mg/dL (7-17); Calcium 6.7 mg/dL (8.4-10.2); Carbon Dioxide 21 mmol/L (22-32); Chloride 114 mmol/L (98-107); Estimated Glomerular Filt Rate > 60 mL/min (>60); Globulin 3.4 g/dL (1.7-4.1); Glucose 105 mg/dL (70-100); HEMOLYSIS < 15 (0-50); Potassium 3.2 mmol/L (3.4-5.1); Sodium 139 mmol/L (137-145); Total Protein 5.7 g/dL (6.3-8.2)
[2023-12-03 03:26] LABS: Appearance Urine UA CLOUDY; Bilirubin Urine UA 1+ (NEGATIVE); Color Urine UA YELLOW; Glucose Urine UA NEGATIVE (Negative); Ketones Urine UA 1+ (NEGATIVE); Leukocyte Esterase Urine UA NEGATIVE (NEGATIVE); Nitrite Urine UA POSITIVE (Negative); Occult Blood Urine UA 3+ (Negative); Protein Urine UA 2+ (Negative); Specific Gravity Urine UA 1.025 (1.000-1.035); Urobilinogen Urine UA 0.2 E.U./dL (0.2)
[2023-12-03 03:26] LABS: Lactate (Lactic Acid) 1.1 mmol/L (0.7-2.1); Magnesium 2.4 mg/dL (1.6-2.3)
[2023-12-03 03:27] LABS: pH Urine UA 5.5 (4.5-8.0)
[2023-12-03 03:29] LABS: C-Reactive Protein Quant < 0.5 mg/dL (<1.0)
[2023-12-03 03:41] LABS: Bacteria Urine Many (>30); RBC Urine 5-10/HPF (0-5/HPF); Urine Volume 10mL (spun); WBC Urine 10-30/HPF (0-5/HPF)
[2023-12-03 03:42] LABS: Culture Indicated Urine Specimen Cultured; Squamous Epithelial Cell Urine 1-5 /HPF (0-5/HPF)
[2023-12-03] MEDS: cefTRIAXone 1,000 MG in SODIUM CHLORIDE 0.9% 100 ML 200 MG IV (04:06)
[2023-12-03] MEDS: POTASSIUM CHLORIDE 20 MEQ TAB 40 MEQ PO ×2 (04:06→08:46)
[2023-12-03 04:11] LABS: Ictotest Urine Negative (Negative)
[2023-12-03 04:39] LABS: Free T4, Direct Thyroxine 1.14 ng/dL (0.78-2.19)
[2023-12-03] MEDS: MIDODRINE HCL 5 MG TABLET 10 MG PO (06:03)
[2023-12-03] MEDS: chlordiazePOXIDE 25 MG CAPSULE 50 MG PO ×4 (06:03→23:20)
[2023-12-03] MEDS: ALBUMIN HUMAN 50 GM/200 ML VIAL IV (06:54)
--- NOTE | 2023-12-03 07:54 | PM.PN.1 ---
Subjective Subjective Interval history: From night doctor: Hypotensive post Clonidine upon initial work up, severe volume depletion with lactic acidosis. Improving with aggressive IV fluids. Repeat labs confirming hemoconcentration. Urine output improving, UA with +N. Given clinical condition will start Ceftriaxone and await Urine culture, blood culture. States she was at her baseline health this morning when she felt like her heart was racing. This persisted and was not like any other times is has felt fast with red bull which she has daily in the morning and thus she presented to ED for evaluation. Denies chest pain, endorses a little SOB like she was winded. Denies GI or symptoms. Typically drinks 8 oz of alcohol a day, last drink 4/3 in the evening. Has stopped drinking EtOH previously without withdrawal symptoms or seizure, longest duration about 6 months. Feels that she tries but does not stay as well hydrated as she would like at home, drinks about 3 cups a water a day while at work. Tries to eat a diet balanced with proteins. Denies fevers, chills, night sweats. No sick contacts. No recent virus. Reports a pneumonia around 07/2023, was able to manage at home. States she does not take any medications, does not have any medical conditions, is not aware of any medical records on file for her at other facilities. Today: She is doing better, she denies any dyspnea or pain. She also denies tremor, nausea, vomiting, or hallucinations. Her last drink was 2 days prior, on Wednesday. Exam Vital Signs (past 8 hours): - 12/03/23 00:00 12/03/23 00:00 12/03/23 00:00 Temperature 97.5 F L Pulse Rate 100 H Respiratory Rate 20 Blood Pressure 101/58 L Pulse Oximetry 98 Oxygen Delivery Method Nasal Cannula Oxygen Flow Rate 0 12/03/23 01:00 12/03/23 01:00 12/03/23 01:02 Temperature Pulse Rate 86 89 Respiratory Rate 25 H 22 Blood Pressure 87/50 L Pulse Oximetry 92 94 Oxygen Delivery Method Oxygen Flow Rate 12/03/23 01:02 12/03/23 02:00 12/03/23 02:00 Temperature Pulse Rate 81 Respiratory Rate 25 H Blood Pressure 84/51 L 79/44 L Pulse Oximetry 92 Oxygen Delivery Method Oxygen Flow Rate 1 12/03/23 02:01 12/03/23 02:01 12/03/23 02:30 Temperature Pulse Rate 87 Respiratory Rate 20 Blood Pressure 81/48 L 75/43 L Pulse Oximetry 92 Oxygen Delivery Method Oxygen Flow Rate 1 12/03/23 02:30 12/03/23 02:33 12/03/23 02:33 Temperature Pulse Rate 75 75 Respiratory Rate 23 23 Blood Pressure 83/49 L Pulse Oximetry 94 93 Oxygen Delivery Method Oxygen Flow Rate 12/03/23 03:00 12/03/23 03:00 12/03/23 03:25 Temperature Pulse Rate 82 Respiratory Rate 25 H Blood Pressure 87/54 L 100/57 L Pulse Oximetry 96 Oxygen Delivery Method Oxygen Flow Rate 12/03/23 03:25 12/03/23 03:30 12/03/23 03:30 Temperature Pulse Rate 89 84 Respiratory Rate 24 21 Blood Pressure 98/55 L Pulse Oximetry 99 99 Oxygen Delivery Method Oxygen Flow Rate 1 12/03/23 03:45 12/03/23 03:45 12/03/23 04:00 Temperature Pulse Rate 79 Respiratory Rate 22 Blood Pressure 89/54 L Pulse Oximetry 96 Oxygen Delivery Method Nasal Cannula Oxygen Flow Rate 12/03/23 04:00 12/03/23 04:00 12/03/23 04:15 Temperature 97.5 F L Pulse Rate 80 Respiratory Rate 21 Blood Pressure 89/53 L 96/55 L Pulse Oximetry 94 Oxygen Delivery Method Oxygen Flow Rate 1 12/03/23 04:15 12/03/23 04:30 12/03/23 04:45 Temperature Pulse Rate 80 89 74 Respiratory Rate 23 26 H 7 L Blood Pressure Pulse Oximetry 97 99 Oxygen Delivery Method Oxygen Flow Rate 12/03/23 04:45 12/03/23 05:00 12/03/23 05:00 Temperature Pulse Rate 72 Respiratory Rate 15 Blood Pressure 89/53 L 84/48 L Pulse Oximetry 94 Oxygen Delivery Method Oxygen Flow Rate 1 1 12/03/23 05:15 12/03/23 05:15 12/03/23 05:30 Temperature Pulse Rate 73 Respiratory Rate 17 Blood Pressure 83/53 L 76/50 L Pulse Oximetry 93 Oxygen Delivery Method Oxygen Flow Rate 12/03/23 05:30 12/03/23 05:45 12/03/23 05:45 Temperature Pulse Rate 73 88 Respiratory Rate 19 22 Blood Pressure 113/59 L Pulse Oximetry 93 96 Oxygen Delivery Method Oxygen Flow Rate 12/03/23 06:00 12/03/23 06:00 12/03/23 06:15 Temperature Pulse Rate 78 78 Respiratory Rate 21 22 Blood Pressure 92/51 L Pulse Oximetry 98 95 Oxygen Delivery Method Oxygen Flow Rate 1 12/03/23 06:15 12/03/23 06:30 12/03/23 06:30 Temperature Pulse Rate 79 Respiratory Rate 20 Blood Pressure 92/51 L 92/54 L Pulse Oximetry 97 Oxygen Delivery Method Oxygen Flow Rate 12/03/23 06:45 12/03/23 06:45 12/03/23 07:00 Temperature Pulse Rate 75 Respiratory Rate 12 Blood Pressure 100/58 L 99/63 Pulse Oximetry 98 Oxygen Delivery Method Oxygen Flow Rate 12/03/23 07:00 12/03/23 07:15 12/03/23 07:15 Temperature Pulse Rate 78 70 Respiratory Rate 18 23 Blood Pressure 107/63 Pulse Oximetry 98 99 Oxygen Delivery Method Oxygen Flow Rate 12/03/23 07:30 12/03/23 07:30 12/03/23 07:45 Temperature Pulse Rate 70 Respiratory Rate 20 Blood Pressure 98/60 85/54 L Pulse Oximetry 90 L Oxygen Delivery Method Oxygen Flow Rate 12/03/23 07:45 Temperature 96.7 F L Pulse Rate 66 Respiratory Rate 24 Blood Pressure 85/54 L Pulse Oximetry 90 L Oxygen Delivery Method Oxygen Flow Rate 2 Oxygen Delivery Method Nasal Cannula Oxygen Flow Rate 2 Narrative Exam Narrative: NAD, alert and oriented. Fluent speech. Lungs are clear, normal rate and effort. Heart is regular, no murmur gallop or rub. Abdomen is soft, non distended. Extremities are free of edema. Objective Labs 12/03/23 03:01 12/03/23 03:01 Labs: Laboratory Results - last 24 hr 12/02/23 12/02/23 12/02/23 17:05 19:05 19:55 WBC 8.2 RBC 4.57 Hgb 15.0 Hct 43.1 MCV 94.3 MCH 32.7 MCHC 34.7 RDW 13.9 Plt Count 135 L Neut % (Auto) 76.6 H Lymph % (Auto) 19.2 L [place] % (Auto) 3.6 Eos % (Auto) 0.1 L Baso % (Auto) 0.5 Neut # (Auto) 6300 Lymph # (Auto) 1600 [place] # (Auto) 300 Eos # (Auto) 0 Baso # (Auto) 0 PT 13.0 H INR 1.1 APTT 36 D-Dimer 460 VBG pH 7.45 H VBG pCO2 27.9 L VBG pO2 64 H VBG HCO3 19 L VBG Total CO2 20 L VBG O2 Saturation 93 H VBG Base Excess -5.0 L FiO2 21 Sodium 142 Potassium 3.2 L Chloride 105 Carbon Dioxide 11 L BUN 13 Creatinine 0.97 Estimated GFR > 60 BUN/Creatinine Ratio 13.4 Glucose 103 H Lactate 10.9 H* 6.6 H* Calcium 9.3 Magnesium 1.8 Total Bilirubin 1.8 H AST 57 H ALT 25 Alkaline Phosphatase 149 H Total Creatine Kinase 72 Troponin I 0.032 C-Reactive Protein Total Protein 8.9 H Albumin 4.3 Globulin 4.6 H Albumin/Globulin Ratio 0.9 L Lipase 197 TSH 0.392 L Free T4 Urine Color Urine Appearance Urine pH Ur Specific [place] Urine Protein Urine Glucose (UA) Urine Ketones Urine Occult Blood Urine Nitrate Urine Bilirubin Ur Bilirubin Confirm Urine Urobilinogen Ur Leukocyte Esterase Urine RBC Urine WBC Ur Squamous Epith Cells Urine Bacteria Ur Culture Indicated? Vol Urine Centrifuged Nasal Screen MRSA (PCR) U Opiates 300ng/mL cut Ur Oxycodone Screen Urine Methadone Screen Ur Barbiturates Screen U Tricyclic Antidepress Ur Phencyclidine Scrn Ur Amphetamines Screen U Methamphetamines Scrn Ur MDMA Scrn (Ecstasy) U Benzodiazepines Scrn Urine Cocaine Screen U Marijuana (THC) Screen Urine Specific [place] Ethyl Alcohol 17 H Ur Creatinine 12/02/23 12/02/23 12/02/23 21:20 23:20 23:40 WBC RBC Hgb Hct MCV MCH MCHC RDW Plt Count Neut % (Auto) Lymph % (Auto) [place] % (Auto) Eos % (Auto) Baso % (Auto) Neut # (Auto) Lymph # (Auto) [place] # (Auto) Eos # (Auto) Baso # (Auto) PT INR APTT D-Dimer VBG pH VBG pCO2 VBG pO2 VBG HCO3 VBG Total CO2 VBG O2 Saturation VBG Base Excess FiO2 Sodium Potassium Chloride Carbon Dioxide BUN Creatinine Estimated GFR BUN/Creatinine Ratio Glucose Lactate 2.8 H Calcium Magnesium Total Bilirubin AST ALT Alkaline Phosphatase Total Creatine Kinase Troponin I C-Reactive Protein Total Protein Albumin Globulin Albumin/Globulin Ratio Lipase TSH Free T4 Urine Color Yellow Urine Appearance Cloudy Urine pH 5.5 Ur Specific [place] 1.025 Urine Protein 2+ H Urine Glucose (UA) Negative Urine Ketones 1+ H Urine Occult Blood 3+ H Urine Nitrate Positive H Urine Bilirubin 1+ H Ur Bilirubin Confirm Negative Urine Urobilinogen 0.2 Ur Leukocyte Esterase Negative Urine RBC 5-10/hpf H Urine WBC 10-30/hpf H Ur Squamous Epith Cells 1-5 /hpf Urine Bacteria Many (>30) H Ur Culture Indicated? Specimen cultured Vol Urine Centrifuged 10ml (spun) Nasal Screen MRSA (PCR) Not detected U Opiates 300ng/mL cut Negative Ur Oxycodone Screen Negative Urine Methadone Screen Negative Ur Barbiturates Screen Negative U Tricyclic Antidepress Negative Ur Phencyclidine Scrn Negative Ur Amphetamines Screen Negative U Methamphetamines Scrn Negative Ur MDMA Scrn (Ecstasy) Negative U Benzodiazepines Scrn Negative Urine Cocaine Screen Negative U Marijuana (THC) Screen Negative Urine Specific [place] Ethyl Alcohol Ur Creatinine 12/02/23 12/03/23 23:40 03:01 WBC 5.3 RBC 3.30 L Hgb 10.9 L Hct 31.0 L MCV 93.8 MCH 32.9 MCHC 35.1 RDW 14.1 Plt Count 74 L Neut % (Auto) 54.2 D Lymph % (Auto) 38.0 [place] % (Auto) 5.7 Eos % (Auto) 0.9 L Baso % (Auto) 1.2 Neut # (Auto) 2900 Lymph # (Auto) 2000 [place] # (Auto) 300 Eos # (Auto) 0 Baso # (Auto) 100 PT INR APTT D-Dimer VBG pH VBG pCO2 VBG pO2 VBG HCO3 VBG Total CO2 VBG O2 Saturation VBG Base Excess FiO2 Sodium 139 Potassium 3.2 L Chloride 114 H Carbon Dioxide 21 L BUN 13 Creatinine 0.78 Estimated GFR > 60 BUN/Creatinine Ratio 16.7 Glucose 105 H Lactate 1.1 Calcium 6.7 L Magnesium 2.4 H Total Bilirubin 1.8 H AST 42 H ALT 16 Alkaline Phosphatase 89 D Total Creatine Kinase Troponin I C-Reactive Protein < 0.5 Total Protein 5.7 L Albumin 2.3 L Globulin 3.4 Albumin/Globulin Ratio 0.7 L Lipase TSH Free T4 1.14 Urine Color Urine Appearance Urine pH TNP Ur Specific [place] Urine Protein Urine Glucose (UA) Urine Ketones Urine Occult Blood Urine Nitrate Urine Bilirubin Ur Bilirubin Confirm Urine Urobilinogen Ur Leukocyte Esterase Urine RBC Urine WBC Ur Squamous Epith Cells Urine Bacteria Ur Culture Indicated? Vol Urine Centrifuged Nasal Screen MRSA (PCR) U Opiates 300ng/mL cut Ur Oxycodone Screen Urine Methadone Screen Ur Barbiturates Screen U Tricyclic Antidepress Ur Phencyclidine Scrn Ur Amphetamines Screen U Methamphetamines Scrn Ur MDMA Scrn (Ecstasy) U Benzodiazepines Scrn Urine Cocaine Screen U Marijuana (THC) Screen Urine Specific [place] TNP Ethyl Alcohol Ur Creatinine TNP [facility] Social History household members: children lives independently: Yes Smoking Status: Never smoker alcohol intake: current Assessment & Plan Assessment & Plan narrative: 1. Acute alcohol withdrawal, present on admission and active. -CIWA protocol, thiamine, and follow clinically. 2. Sinus tachycardia, present on admission and active. -CIWA protocol, IV fluids, and follow. 3. Hypokalemia, present on admission and active. -we will replete. 3. Hepatic cirrhosis, present on admission and active. 4. Severe alcohol use disorder, present on admission and active. -plan as noted above. She is full resuscitation, her estimated date of discharge is December 03. Quality VTE Deep Vein Thrombosis/Pulmonary Embolism Present on Admission: Yes
[2023-12-03] MEDS: FOLIC ACID 1 MG TABLET PO (08:46)
[2023-12-03] MEDS: THIAMINE 100 MG TABLET PO (08:46)
[2023-12-03] MEDS: MULTIVITAMIN 1 TABLET 1 TAB PO (08:46)
[2023-12-03] MEDS: DEXTROSE 5%-0.45% NS 1,000 ML 100 ML IV ×2 (08:47→23:54)
[2023-12-03] MEDS: ONDANSETRON 4 MG/2 ML INJ IV (12:00)
[2023-12-03] MEDS: ACETAMINOPHEN 325 MG TABLET 650 MG PO (13:22)
--- NOTE | 2023-12-03 14:07 | PC.NURSE ---
Informed provider that pt was beginning to show some signs of withdrawal - intermittent nausea, headache and tachypnea. Denies hallucinations, no longer sensitive to light, no tremors, no diaphoresis. Informed provider that pt's BP had been stable for several hours and pt had been asymptomtic when BP was lower. Provider aware that pt had lower lobe crackles and tachypnea.
--- NOTE | 2023-12-03 14:09 | DIET.CONS2 ---
Dietary Inpatient Consultation Note Admission Date: 12/02/2023 21:46 53 y F admitted for alcohol withdrawal. Nutrition consulted for chronic alcohol use. Met with pt at bedside. Tolerated full liquid lunch. Reports adequate appetite outside of hospital with 2 meals per day from work and/or made at home. Is aiming for multiple small frequent meals per day. No weight hx. Encouraged adequate protein, with review of protein sources, and energy intake daily. Pt had no nutrition questions. No nutrition dx at this time. Diet: 12/03/23 Lunch Full Liquid Diet Diet Modifications: Nutrition Percent Meal Consumed 75% 12/03/23 10:00 Electronically Signed by: Jasmine Juarez 12/03/23 14:09 Clinical Dietitian [address] [id number]
--- NOTE | 2023-12-03 14:30 | CM.DANOTE ---
Initial DCP Assessment Visit Note Reviewed EMR and team rounds for status updates. Met with pt at bedside to introduce self and role. Pt was found to be alert/oriented and sitting upright in the recliner, appearing comfortable and in no distress. Pt lives with her adult dtr and grandchildren. She is employed by the [employer], and is independent in all ADL's. Dtr will transport her home at d/c. Payor: [facility], [facility] PCP-U/K Pt is a 53 year-old F who presented to the ED last evening with c/o rapid heartbeat/palpitations. Tachycardia persisted over an hour even at rest, and she was found to have elevated liver enzymes. She states that she last drank alcohol the evening before, and only drinks 1-alcoholic drink a day. CT of the liver was consistent with alcoholic cirrhosis. She had said in the ED that she was wanting resources for LEATHA tx, however today she is expressing feeling non-committal about it. ANA CRISTINA provided her information on local OP LEATHA tx options. DCP will cotninue to follow and assist with any further evolving home d/c needs. Discharge Planning/Care Management CM Discharge Assessment Start: 12/03/23 14:27 Freq: Status: Active Protocol: Document 12/03/23 14:27 DPL (Rec: 12/03/23 14:30 DPL [id number]) Discharge Planning Assessment Assigned Drafter Cartographic ANA CRISTINA Kruger Advance Directives? No History Provided By Patient,Medical Record Expected Length of Stay 2 Has Patient been admitted in last 30 No days? Prior Living Arrangements House Household Members children Type of transporation used prior to Drives own vehicle admit Independent with ADL's Yes Is patient alert and oriented? Yes Caregiver for Another No Comment No anticipated d/c needs indicated at this time. Pt was initially open to resources for LEATHA tx, however now she just might think about it. SHEAR GRINDER OPERATOR HELPER provided a local resource supported by [place] [facility] [place]. Barriers to Discharge No Discharge Plan Home Transportation Arrangement Daughter Referrals Initiated None needed Whiteboard Updated in Patient Room with Yes name and ext. # of Drafter Cartographic Review Status In Process Please Provide Date Initial DC 12/03/23 Assessment Was Performed
[2023-12-04] VITALS: BP 93/55; PULSE 80; RESP 23; TEMP 36.5; O2SAT 96
[2023-12-04] MEDS: cefTRIAXone 1,000 MG in SODIUM CHLORIDE 0.9% 100 ML 200 MG IV (03:00)
[2023-12-04 04:00] VITALS: BP 93/54; PULSE 80; RESP 19; TEMP 35.9; O2SAT 93
[2023-12-04] MEDS: chlordiazePOXIDE 25 MG CAPSULE 50 MG PO (06:03)
[2023-12-04 06:08] LABS: Add Manual Diff / Slide Review NO; Basophils Absolute Auto 0 /uL (0-100); Basophils Percent Auto 0.9 % (0-2); Eosinophils Absolute Auto 100 /uL (0-450); Eosinophils Percent Auto 3.4 % (2-4); Hematocrit 34.4 % (36-46); Hemoglobin 11.8 g/dL (12.0-16.0); Lymphocytes Absolute Auto 1300 /uL (1100-4500); Mean Corpuscular HGB Conc 34.3 % (30-36); Mean Corpuscular Hemoglobin 32.6 PG (26-34); Monocytes Absolute Auto 200 /uL (0-900); Monocytes Percent Auto 7.5 % (3-14); Neutrophils Absolute Auto 1300 /uL (1500-7000); Neutrophils Percent Auto 44.2 % (50-75); Platelet Count 65 X10^3/uL (150-400); Red Blood Cell Count 3.62 X10^6/uL (4.0-5.2); Red Cell Distribution Width 14.6 % (11.6-14.8)
[2023-12-04 06:21] LABS: BUN Creatinine Ratio 10.8 (6-22); Blood Urea Nitrogen 9 mg/dL (7-17); Calcium 8.3 mg/dL (8.4-10.2); Carbon Dioxide 22 mmol/L (22-32); Chloride 120 mmol/L (98-107); Estimated Glomerular Filt Rate > 60 mL/min (>60); Glucose 93 mg/dL (70-100); HEMOLYSIS < 15 (0-50); Potassium 3.8 mmol/L (3.4-5.1); Sodium 143 mmol/L (137-145)
[2023-12-04 07:00] VITALS: O2SAT 95
[2023-12-04] MEDS: MULTIVITAMIN 1 TABLET 1 TAB PO (08:30)
[2023-12-04] MEDS: FOLIC ACID 1 MG TABLET PO (08:30)
[2023-12-04] MEDS: THIAMINE 100 MG TABLET PO (08:30)
--- NOTE | 2023-12-04 10:55 | PM.DS.1 ---
History of Present Illness History of Present Illness Chief complaint: heart racing Narrative: States she was at her baseline health this morning when she felt like her heart was racing. This persisted and was not like any other times is has felt fast with red bull which she has daily in the morning and thus she presented to ED for evaluation. Denies chest pain, endorses a little SOB like she was winded. Denies GI or symptoms. Typically drinks 8 oz of alcohol a day, last drink 4/3 in the evening. Has stopped drinking EtOH previously without withdrawal symptoms or seizure, longest duration about 6 months. Feels that she tries but does not stay as well hydrated as she would like at home, drinks about 3 cups a water a day while at work. Tries to eat a diet balanced with proteins. Denies fevers, chills, night sweats. No sick contacts. No recent virus. Reports a pneumonia around 07/2023, was able to manage at home. States she does not take any medications, does not have any medical conditions, is not aware of any medical records on file for her at other facilities. Discharge Providers Provider Date of admission: 12/02/23 21:46 Discharge Date: 12/04/23 Primary care physician: [facility]. Consults: 12/02/23 22:11 Consult to PACKING MACHINE CAN FEEDER - Information Engineer Routine Comment: 12/02/23 22:16 Consult to Dietitian, Adult Routine Comment: Reason For Exam: chronic alcohol use Discharge provider: Luiz Bernardo MD Summary Hospital Course Discharge Diagnosis: 1. Acute alcohol withdrawal, present on admission and active. -CIWA protocol, mild symptoms. 2. Sinus tachycardia, present on admission and active. -improved with fluids. 3. Hypokalemia, present on admission and active. -repleted. 3. Hepatic cirrhosis, present on admission and active. 4. Severe alcohol use disorder, present on admission and active. Hospital Course: Patient was admitted with mild all withdrawal and volume depletion. She also was hypokalemic. This was repleted. She improved with fluids and required very little in terms of CIWA protocol for her withdrawal symptoms. On the day of discharge she was at baseline and the importance of alcohol cessation was discussed with her. She does not tend to try to stop drinking. She has attended AA meetings in the past and we will likely do this. Status at Discharge Cognitive/behavioral status at discharge: oriented Functional status at discharge: independent ambulation Overall status at discharge: patient is back to baseline Time Spent with Patient Time spent: Greater than 30 minutes Exam Vital Signs (past 8 hours): - 12/04/23 04:00 12/04/23 07:00 Temperature 96.6 F L Pulse Rate 80 Respiratory Rate 19 Blood Pressure 93/54 L Pulse Oximetry 93 95 Oxygen Delivery Method Room Air Oxygen Flow Rate 2 Fraction of Inspired Oxygen 24 SaO2/FiO2 Ratio 383 Oxygen Delivery Method Room Air Oxygen Flow Rate 2 Narrative Exam Narrative: NAD, alert and oriented. Fluent speech. Lungs are clear, normal rate and effort. Heart is regular, no murmur gallop or rub. Abdomen is soft, non distended. Extremities are free of edema. Objective Labs 12/04/23 06:00 12/04/23 06:00 Labs: Laboratory Results - last 24 hr 12/04/23 06:00 WBC 3.0 L RBC 3.62 L Hgb 11.8 L Hct 34.4 L MCV 95.0 MCH 32.6 MCHC 34.3 RDW 14.6 Plt Count 65 L Neut % (Auto) 44.2 L Lymph % (Auto) 44.0 H [place] % (Auto) 7.5 Eos % (Auto) 3.4 Baso % (Auto) 0.9 Neut # (Auto) 1300 L Lymph # (Auto) 1300 [place] # (Auto) 200 Eos # (Auto) 100 Baso # (Auto) 0 Sodium 143 Potassium 3.8 Chloride 120 H Carbon Dioxide 22 BUN 9 Creatinine 0.83 Estimated GFR > 60 BUN/Creatinine Ratio 10.8 Glucose 93 Calcium 8.3 L PFSH Social History household members: children lives independently: Yes Smoking Status: Never smoker alcohol intake: current Discharge Assessment & Plan Assessment and Plan Assessment: 1. Acute alcohol withdrawal, present on admission and resolved. 2. Sinus tachycardia, present on admission and improved. -improved with fluids. 3. Hypokalemia, present on admission and resolved. 3. Hepatic cirrhosis, present on admission and active. 4. Severe alcohol use disorder, present on admission and active. Plan of Treatment: Discharge home, new new medications. She was advised to consider cessation of alcohol. AA meetings were recommended. Follow up with her primary care within 6 days is recommended. Discharge Plan Discharge Plan Patient Disposition: Home Provider Discharge Comment: stable for discharge. Advise alcohol cessation. Discharge orders & Medications Prescriptions: No Action No Known Home Medications Medication counseling provided by Pharmacist: No Follow up/Referrals: Miscellaneous,DoctorMD [Non-Staff] - Discharge Health Status Multidrug resistant organism: No MDRO Diet/Activity/Treatments Diet: Diet as Tolerated Skin/Wound/Dressing Care Report to your healthcare provider any signs of infection, such as:: chills, fever and increased pain Visit Report/Discharge Packet Stand Alone Forms: Patient Portal/API Discharge Data Attending Provider: Fernanda Walker Admit Date/Time: 12/02/23 21:46 Quality VTE Deep Vein Thrombosis/Pulmonary Embolism Present on Admission: Yes
--- NOTE | 2023-12-04 11:05 | CM.DPC ---
DCP Cont. Reviewed EMR and team rounds for status updates. Pt has been medically cleared for d/c, her family will transport her when ready. No further DCP needs identified at this time.
== END 2023-12-04 12:01 | disposition home or self-care (01) ==
LOC: ED 20:01 → ICU 12-03 06:27 → AC 12-03 13:14
PROVIDERS: Emergency Medicine; Internal Medicine; Admitting Provider Internal Medicine; Emergency Provider Emergency Medicine; Referring Provider Emergency Medicine; Visit Provider Internal Medicine
DX: F10.930 Alcohol use, unspecified with withdrawal, uncomplicated (principal); R00.0 Tachycardia, unspecified; K70.30 Alcoholic cirrhosis of liver without ascites; E87.6 Hypokalemia; E86.0 Dehydration
CPT/HCPCS: 36415; 71045; 71275; 80048; 80053; 80305; 80320; 81001; 82550; 82805; 83605; 83690; 83735; 84439; 84443; 84484; 85025; 85379; 85610; 85730; 86140; 87040; 87077; 87086; 87186; 87797; 93005; 93010; 94760; 96361; 96365; 96366; 96368; 96375; 99285; G0378; J0696; J1885; J2405; J2560; J3475; P9041; Q9967